=== PATIENT | male | born 1985 | race Caucasian/White ===

== ENCOUNTER 2018-01-13 17:56 | Emergency (ER) | payer OTHER ==
--- NOTE | 2018-01-13 18:59 | C.PDOC ---
History Of Present Illness 32 year old male presents to the emergency department after he slipped in his bathroom at 5:30pm today and landed on his left elbow and forearm, where he is complaining of pain. Time Seen by Provider: 01/13/18 18:39 Chief Complaint (Nursing): Upper Extremity Problem/Injury History Per: Patient History/Exam Limitations: no limitations Onset/Duration Of Symptoms: Hrs Quality: "Pain" Past Medical History Reviewed: Historical Data, Nursing Documentation, Vital Signs Vital Signs: Last Vital Signs Temp 98.1 F 01/13/18 20:00 Pulse 70 01/13/18 20:00 Resp 16 01/13/18 20:00 BP 100/65 01/13/18 20:00 Pulse Ox 99 01/13/18 20:33 - Medical History PMH: No Chronic Diseases Surgical History: No Surg Hx Family History: States: No Known Family Hx - Social History Hx Alcohol Use: No Hx Substance Use: No - Immunization History Hx Tetanus Toxoid Vaccination: No Hx Influenza Vaccination: No Hx Pneumococcal Vaccination: No Review Of Systems Musculoskeletal: Positive for: Arm Pain Physical Exam - Physical Exam Appears: Non-toxic, No Acute Distress Head: Atraumatic, Normacephalic Cardiovascular: Rhythm Regular Respiratory: Normal Breath Sounds Gastrointestinal/Abdominal: Normal Exam Extremity: Normal ROM, Tenderness (left forearm and elbow), Capillary Refill (< 2 sec), No Deformity, No Swelling Pulses: Left Radial: Normal, Right Radial: Normal Neurological/Psych: Oriented x3, Normal Speech, Normal Motor, Normal Sensation ED Course And Treatment O2 Sat by Pulse Oximetry: 99 (RA) Pulse Ox Interpretation: Normal - Other Rad Left forearm X-Ray: Interpreted by Me Interpretation: no fx or dislocation left elbow X-Ray: Interpreted by Me Interpretation: can not r/o fx Progress Note: Plan: Motrin 600mg PO. Tylenol 975mg PO. XR Left Elbow 3 Views. XR Left Forearm Reassessment Condition: Improved Medical Decision Making Medical Decision Making: Pt placed in post splint and sling by CP and checked by me. Disposition Counseled Patient/Family Regarding: Studies Performed, Diagnosis, Need For Followup, Rx Given - Disposition Referrals: Fran Rogers III, MD [Staff Provider] - Disposition: HOME/ ROUTINE Disposition Time: 19:44 Condition: STABLE Additional Instructions: FOLLOW UP WITH ORTHOPEDIST IN 1-2 DAYS FOR RE-EVALUATION. IF SYMPTOMS GET WORSE OR ANY NEW CONCERNING SYMPTOMS DEVELOP RETURN TO ED. 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 - Scribe Statement The provider has reviewed the documentation as recorded by the Scribe (Osmin Freitas) All medical record entries made by the Scribe were at my direction and personally dictated by me. I have reviewed the chart and agree that the record accurately reflects my personal performance of the history, physical exam, medical decision making, and the department course for this patient. I have also personally directed, reviewed, and agree with the discharge instructions and disposition.
[2018-01-13 20:08] VITALS: BP 100/65; PULSE 70; RESP 16; TEMP 98.1
[2018-01-13 20:31] VITALS: O2SAT 99
--- NOTE | 2018-01-14 08:35 | RAD ---
PROCEDURE: Radiographs of the left elbow. HISTORY: pain COMPARISON: No prior. FINDINGS: BONES: Normal. No fracture. JOINTS: Normal. No osteoarthritis. SOFT TISSUES: Normal. JOINT EFFUSION: None. OTHER FINDINGS: None IMPRESSION: Unremarkable radiographs of the left elbow.
--- NOTE | 2018-01-14 08:38 | RAD ---
PROCEDURE: Radiographs of the Left Forearm HISTORY: fall arm pain COMPARISON: None available. TECHNIQUE: Frontal and lateral views obtained. FINDINGS: BONES: No fracture or destructive lesion. JOINT SPACES: Unremarkable. OTHER FINDINGS: None. IMPRESSION: Unremarkable radiographs of the left forearm.
== END 2018-01-13 20:02 | disposition home or self-care (01) ==
LOC: C.ER 17:56
DX: S42.402A Unspecified fracture of lower end of left humerus, initial encounter for closed fracture (principal); W01.0XXA Fall on same level from slipping, tripping and stumbling without subsequent striking against object, initial encounter; Y92.89 Other specified places as the place of occurrence of the external cause

== ENCOUNTER 2018-01-14 16:06 | Emergency (ER) | payer OTHER ==
[2018-01-14 16:22] VITALS: BP 118/74; PULSE 79; RESP 20; TEMP 98; O2SAT 98
--- NOTE | 2018-01-14 16:40 | C.PDOC ---
History Of Present Illness 32 year old male presents to the ED for re-evaluation of left elbow pain which began after he sustained a fall yesterday. Patient was evaluated in ED yesterday after he sustained the fall. He underwent X-rays and was discharged with instructions to follow up with orthopedic care. Patient states he was unable to follow up today and complains of localized pain to the lateral aspect of his left elbow. Otherwise, patient denies deformities, skin changes, weakness or sensorivascular deficits. Time Seen by Provider: 01/14/18 16:28 Chief Complaint (Nursing): Upper Extremity Problem/Injury History Per: Patient History/Exam Limitations: no limitations Onset/Duration Of Symptoms: Hrs Current Symptoms Are (Timing): Still Present Quality: "Pain" Additional History Per: Patient Past Medical History Reviewed: Historical Data, Nursing Documentation, Vital Signs Vital Signs: Last Vital Signs Temp 98.0 F 01/14/18 16:20 Pulse 79 01/14/18 16:20 Resp 20 01/14/18 16:20 BP 118/74 01/14/18 16:20 Pulse Ox 98 01/14/18 17:16 - Medical History PMH: No Chronic Diseases Surgical History: No Surg Hx Family History: States: Unknown Family Hx - Social History Hx Alcohol Use: No Hx Substance Use: No - Immunization History Hx Tetanus Toxoid Vaccination: No Hx Influenza Vaccination: No Hx Pneumococcal Vaccination: No Review Of Systems Musculoskeletal: Positive for: Other (left elbow pain ) Neurological: Negative for: Weakness, Numbness Physical Exam - Physical Exam Appears: Well, Non-toxic, No Acute Distress Skin: Normal Color, Warm, No Rash, No Ecchymosis Head: Atraumatic, Normacephalic Extremity: Normal ROM (mild discomfort to Left elbow pronation/supination. Otherwise, FAROM of LUE.), Tenderness (over lateral aspect left elbow), Capillary Refill (less than 2sec to left hand), No Deformity, No Swelling Neurological/Psych: Oriented x3, Normal Speech, Normal Motor, Normal Sensation, Normal Reflexes ED Course And Treatment O2 Sat by Pulse Oximetry: 98 (on RA) Pulse Ox Interpretation: Normal - Other Rad left elbow XR X-Ray: Viewed By Me, Read By Radiologist Interpretation: PROCEDURE: Radiographs of the left elbow. HISTORY: pain. COMPARISON: No prior. FINDINGS: BONES: Normal. No fracture. JOINTS: Normal. No osteoarthritis. SOFT TISSUES: Normal. JOINT EFFUSION: None. OTHER FINDINGS: None. IMPRESSION: Unremarkable radiographs of the left elbow. left forearm XR X-Ray: Viewed By Me, Read By Radiologist Interpretation: PROCEDURE: Radiographs of the Left Forearm. HISTORY: fall arm pain. COMPARISON: None available. TECHNIQUE: Frontal and lateral views obtained. FINDINGS: BONES: No fracture or destructive lesion. JOINT SPACES: Unremarkable. OTHER FINDINGS: None. IMPRESSION: Unremarkable radiographs of the left forearm. Progress Note: Motrin PO administered. On re-evaluation, pt is afebrile, hemodynamicaly stable. NOn-toxic. Ambulatoyr in ED with stable gait. LUE: mild tenderness lateral aspect left elbow. NO edema, no palpable deformity. FAROM, on neurovscular deficits. Imaging review (-) acute fx or dislocation. Johnie wrap applied to left elbow, sling to left arm. results discussed with patient, ref. to f/u with Ortho Clinic in 2-3 days for re-eval as need. Disposition Counseled Patient/Family Regarding: Diagnosis, Need For Followup, Rx Given - Disposition Referrals: [facility] [Outside] Disposition: HOME/ ROUTINE Disposition Time: 16:40 Condition: STABLE Additional Instructions: Johnie wrap to left elbow for 2-3 weeks Take Ibuprofen daily Follow up with Orthopedist at [facility] for further evaluation and treatment. return to ED if any worsening or new changes. 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 - Scribe Statement The provider has reviewed the documentation as recorded by the Scribe (Beatriz Nix) All medical record entries made by the Scribe were at my direction and personally dictated by me. I have reviewed the chart and agree that the record accurately reflects my personal performance of the history, physical exam, medical decision making, and the department course for this patient. I have also personally directed, reviewed, and agree with the discharge instructions and disposition.
== END 2018-01-14 17:10 | disposition home or self-care (01) ==
LOC: C.ER 16:06
DX: S53.402A Unspecified sprain of left elbow, initial encounter (principal); W19.XXXA Unspecified fall, initial encounter; Y92.9 Unspecified place or not applicable